=== PATIENT | female | born 1950 | race Asian ===

== ENCOUNTER 2017-04-23 13:13 | Outpatient (CLI) | payer MEDICARE ==
--- NOTE | 2017-04-25 11:15 | Mammography Report ---
DIGITAL BILATERAL SCREENING MAMMOGRAM: 04/23/2017 CLINICAL HISTORY: A 66-year-old female in for routine screening mammogram. Patient does have a family history of breast cancer. She had a cousin with breast cancer at age 55. Patient has had no prior breast surgeries. COMPARISON: 02/14/2009, 06/27/2010, 09/04/2011, 11/18/2013, 01/24/2016 TECHNIQUE: Craniocaudad and oblique lateral views of each breast were obtained with Hologic Full Field digital mammography. FINDINGS: Breasts are almost entirely composed of fat. No significant clusters of calcification are seen. No significant masses are noted. No change is seen. IMPRESSION: BREASTS APPEAR RADIOGRAPHICALLY BENIGN. BIRADS CATEGORY 1. NEGATIVE RECOMMENDATIONS: ANNUAL BILATERAL SCREENING MAMMOGRAPHY STANDARD QUALIFYING STATEMENTS 1. This examination was reviewed with the aid of Computer-Aided Detection (CAD). 2. A negative or benign imaging report should not delay biopsy if clinically suspicious findings are present. Consider surgical consultation if warranted. More than 5% of cancers are not identified by imaging. 3. Dense breasts may obscure an underlying neoplasm. JOB #: [id number] EXT JOB #: [id number] SADA
== END 2017-04-23 13:14 | disposition home or self-care (01) ==
LOC: DI.S 13:13
PROVIDERS: ATTEND Nurse Practitioner Family
DX: Z12.31 Encounter for screening mammogram for malignant neoplasm of breast (principal); Z80.3 Family history of malignant neoplasm of breast
CPT/HCPCS: 77067

== ENCOUNTER 2017-06-20 11:11 | Outpatient (CLI) | payer OTHER ==
[2017-06-20 18:07] LABS: ALBUMIN/GLOBULIN RATIO 1.1 (1.0-2.2); BILIRUBIN,TOTAL 0.8 mg/dL (0.2-1.0); BUN - BLOOD UREA NITROGEN 26 mg/dL (6-20); CALCIUM 9.2 mg/dL (8.5-10.3); CARBON DIOXIDE - CO2 30 mmol/L (21-32); CHLORIDE 103 mmol/L (101-111); CHOL/HDL RATIO 4.3 (<4.4); CHOLESTEROL 172 mg/dL; CREATININE 0.8 mg/dL (0.4-1.0); GFR - MDRD 71 (>89); GLUCOSE 105 mg/dL (70-100); HDL CHOLESTEROL 40 mg/dL; LDL/HDL RATIO 2.2 (<4.4); POTASSIUM 3.2 mmol/L (3.5-5.0); SODIUM 139 mmol/L (135-145); TOTAL PROTEIN 7.4 g/dL (6.7-8.2); TRIGLYCERIDES 217 mg/dL; VLDL CHOLESTEROL 43 mg/dL
[2017-06-20 18:25] LABS: HEMOGLOBIN A1C 0.68 g/dL
== END 2017-06-20 11:12 | disposition home or self-care (01) ==
LOC: LAB.F 11:11
PROVIDERS: ATTEND Nurse Practitioner Family
DX: R73.01 Impaired fasting glucose (principal); I10 Essential (primary) hypertension; E78.5 Hyperlipidemia, unspecified; Z13.29 Encounter for screening for other suspected endocrine disorder
CPT/HCPCS: 36415; 80053; 80061; 83036; 84443

== ENCOUNTER 2017-12-18 07:58 | Day surgery (SDC) | payer MEDICARE, OTHER ==
[2017-12-18] MEDS ORDERED: LACTATED RINGERS 1,000 ML IV ONE (08:19)
--- NOTE | 2017-12-18 10:01 | HISTORY & PHYSICAL EXAMINATION ---
HPI - History of Present Illness HPI Comment/Other: patient is here for colonoscopy for history of colon polyps. Current Meds: METOPROLOL SUCCINATE ER 200 MG ORAL TABLET EXTENDED RELEASE 24 HOUR (METOPROLOL SUCCINATE) one tablet dailly DILTIAZEM HCL ER COATED BEADS 300 MG ORAL CAPSULE EXTENDED RELEASE 24 HOUR ( DILTIAZEM HCL COATED BEADS) Take one tablet by mouth daily LISINOPRIL 40 MG ORAL TABLET (LISINOPRIL) Take one tablet by mouth daily HYDROCHLOROTHIAZIDE 25 MG ORAL TABLET (HYDROCHLOROTHIAZIDE) Take one tablet daily by mouth every morning ATORVASTATIN CALCIUM 20 MG ORAL TABLET (ATORVASTATIN CALCIUM) Take one tablet by mouth daily BETAMETHASONE DIPROPIONATE 0.05 % EXTERNAL OINTMENT (BETAMETHASONE DIPROPIONATE ) Apply as directed for eczema FLUTICASONE PROPIONATE 50 MCG/ACT NASAL SUSPENSION (FLUTICASONE PROPIONATE) Instill one spray in each nostril twice daily CLARITIN 10 MG ORAL TABLET (LORATADINE) one po daily NASACORT AQ 55 MCG/ACT NASAL AEROSOL (TRIAMCINOLONE ACETONIDE(NASAL)) one spray each nostril once daily KETOCONAZOLE 2 % EXTERNAL SHAMPOO (KETOCONAZOLE) apply to scalp twice weekly for 8 weeks, then as needed. Leave on 5 min. then rinse Past Medical History: Reviewed history from 08/08/2017 and no changes required: Hyperlipidemia Hypertension Impaired fasting glucose tubular adenomas 2009 Past Surgical History: Reviewed history from 03/14/2017 and no changes required: Colonoscopy 2009 Family History Summary: Reviewed history and no changes required: 11/05/2017 Mother (hannah.) - Has Family History of Diabetes - Entered On: 03/14/2017 Social History: Reviewed history and no changes required: Risk Factors: Smoked Tobacco Use: Former smoker Cigarettes: Yes Year quit: 1995 Years Since Last Quit: 22 Alcohol use: yes Drinks per day: social Physical Exam General: well developed, well nourished, in no acute distress Lungs: clear bilaterally to A & P Heart: regular rate and rhythm, S1, S2 without murmurs, rubs, gallops, or clicks Abdomen: bowel sounds positive; abdomen soft and non-tender without masses, organomegaly, or hernias noted Pulses: pulses normal in all 4 extremities Extremities: no clubbing, cyanosis, edema, or deformity noted with normal full range of motion of all joints Cervical Nodes: no significant adenopathy Psych: alert and cooperative; normal mood and affect; normal attention span and concentration Impression & Recommendations: Problem # 1: history of colon polyps will proceed with colonoscopy. PMH/PSH - Past Medical History Cardiovascular: positive: Hypertension, High cholesterol Respiratory: positive: None Endocrine/Autoimmune: positive: None GI: positive: None : positive: None HEENT: positive: Chronic hearing loss, Other Psych: positive: None Musculoskeletal: positive: None Derm: positive: Eczema MRSA Hx?: No - Past Surgical History General: positive: Colonoscopy HEENT: positive: Other Meds/Allgy - Home Medications Home Medications: Ambulatory Orders Medication Instructions Recorded Confirmed Atorvastatin [Lipitor] 20 mg PO DAILY 12/17/17 12/18/17 Diltiazem HCl [Diltiazem ER] 300 mg PO DAILY 12/17/17 12/18/17 Fluticasone [Flonase] 1 sprays ELANA DAILY 12/17/17 12/18/17 Lisinopril 40 mg PO DAILY 12/17/17 12/18/17 Metoprolol Succinate 200 mg PO DAILY 12/17/17 12/18/17 hydroCHLOROthiazide 25 mg PO DAILY 12/17/17 12/18/17 [Hydrochlorothiazide] - Allergies Allergies/Adverse Reactions: Allergies Allergy/AdvReac Type Severity Reaction Status Date / Time No Known Drug Allergies Allergy Verified 12/17/17 13:55 Exam - Vital Signs Vital Signs: Vital Signs x48h Temp Pulse Resp BP Pulse Ox 12/18/17 08:06 36.2 C L 76 16 144/107 H 98
[2017-12-18] MEDS ORDERED: MIDAZOLAM 2 MG/2 ML VIAL IVP ONE (10:09)
[2017-12-18] MEDS ORDERED: fentaNYL 100 MCG/2 ML VIAL IVP ONE (10:09)
[2017-12-18] MEDS ORDERED: ONDANSETRON 4 MG/2 ML VIAL IVP ONE (10:09)
[2017-12-18 12:13] VITALS: BP 118/62
== END 2017-12-18 07:59 | disposition home or self-care (01) ==
LOC: SDS 07:58
PROVIDERS: ATTEND Surgery
PROC: 0DJD8ZZ Inspection of Lower Intestinal Tract, Via Natural or Artificial Opening Endoscopic (ICD-10-PCS; principal; 2017-12-18 09:00)
DX: Z12.11 Encounter for screening for malignant neoplasm of colon (principal); Z86.010 Personal history of colon polyps; K64.8 Other hemorrhoids; K57.30 Diverticulosis of large intestine without perforation or abscess without bleeding; I10 Essential (primary) hypertension; E78.5 Hyperlipidemia, unspecified; Z87.891 Personal history of nicotine dependence
CPT/HCPCS: G0105; J7120

== ENCOUNTER 2018-02-13 10:55 | Outpatient (CLI) | payer MEDICARE ==
[2018-02-13 18:06] LABS: HB2 TOTAL 14.8 g/dL; HEMOGLOBIN A1C 0.69 g/dL; HEMOGLOBIN A1C % 6.4 % (4.6-6.2)
[2018-02-13 18:09] LABS: CREATININE 0.8 mg/dL (0.4-1.0)
== END 2018-02-13 10:56 | disposition home or self-care (01) ==
LOC: LAB.F 10:55
PROVIDERS: ATTEND Nurse Practitioner Family
DX: R73.01 Impaired fasting glucose (principal); E78.5 Hyperlipidemia, unspecified
CPT/HCPCS: 36415; 80048; 83036; 84478

== ENCOUNTER 2018-06-18 11:39 | Outpatient (CLI) | payer MEDICARE ==
--- NOTE | 2018-06-19 11:34 | Mammography Report ---
Procedure Date: 06/18/2018 Accession Number: [id number] / [id number] Procedure: [facility]ISH[facility] - Screening Mammo Dig Bilat CPT Code: FULL RESULT: EXAM: Screening Mammo Dig Bilat DATE: 06/18/2018 12:46 PM CLINICAL HISTORY: 68-year-old female with a 4 year history of hormone replacement therapy and a family history of breast cancer in a cousin at age 50. TECHNIQUE: Bilateral CC and MLO views were obtained. COMPARISON: 04/23/2017, 01/24/2016, 11/18/2013. FINDINGS: The breasts demonstrate scattered fibroglandular densities bilaterally. Round typically benign calcifications are seen bilaterally. No suspicious masses, clustered microcalcifications, or regions of architectural distortion are identified. IMPRESSION: Benign findings RECOMMENDATION: Routine annual screening unless otherwise clinically indicated. BIRADS CATEGORY 2: Benign findings STANDARD QUALIFYING STATEMENTS: 1. This examination was reviewed with the aid of Computer-Aided Detection (CAD). 2. A negative or benign imaging report should not delay biopsy if clinically suspicious findings are present. Consider surgical consultation if warrented. More than 5% of cancers are not identified by imaging. 3. Dense breasts may obscure an underlying neoplasm.
== END 2018-06-18 11:40 | disposition home or self-care (01) ==
LOC: DI 11:39
PROVIDERS: ATTEND Nurse Practitioner Family
DX: Z12.31 Encounter for screening mammogram for malignant neoplasm of breast (principal); Z80.3 Family history of malignant neoplasm of breast
CPT/HCPCS: 77067

== ENCOUNTER 2021-02-01 10:17 | Outpatient (CLI) | payer MEDICARE ==
[2021-02-01 14:43] LABS: BASOPHILS # (AUTO) 0.1 10^3/uL (0.0-0.1); BASOPHILS % (AUTO) 0.9 %; EOSINOPHILS # (AUTO) 0.7 10^3/uL (0.0-0.7); EOSINOPHILS % (AUTO) 7.3 %; HCT - HEMATOCRIT 45.6 % (37.0-47.0); HGB - HEMOGLOBIN 14.5 g/dL (12.0-16.0); LYMPHOCYTES # (AUTO) 1.4 10^3/uL (1.5-3.5); LYMPHOCYTES % (AUTO) 15.3 %; MEAN CORPUSCULAR HEMOGLOBIN 28.8 pg (27.0-31.0); MEAN CORPUSCULAR HGB CONC 31.8 g/dL (32.0-36.0); MEAN CORPUSCULAR VOLUME 90.7 fL (81.0-99.0); MEAN PLATELET VOLUME 11.8 fL (7.9-10.8); MONOCYTES # (AUTO) 0.8 10^3/uL (0.0-1.0); NEUTROPHILS # (AUTO) 6.4 10^3/uL (1.5-6.6); PLT - PLATELET COUNT 321 10^3/uL (130-450); RED BLOOD COUNT 5.03 10^6/uL (4.20-5.40); RED CELL DISTRIBUTION WIDTH 12.5 % (12.0-15.0); WHITE BLOOD COUNT 9.4 x10^3/uL (4.8-10.8)
[2021-02-01 15:38] LABS: ALBUMIN 4.1 g/dL (3.2-5.5); ALKALINE PHOSPHATASE 105 IU/L (42-121); ALT ALANINE AMINOTRANSFERASE 19 IU/L (10-60); AST ASPARTATE AMINOTRANSFERASE 21 IU/L (10-42); BILIRUBIN,TOTAL 1.3 mg/dL (0.2-1.0); BUN - BLOOD UREA NITROGEN 24 mg/dL (6-20); CALCIUM 9.7 mg/dL (8.5-10.3); CARBON DIOXIDE - CO2 26 mmol/L (21-32); CHLORIDE 101 mmol/L (101-111); CHOL/HDL RATIO 4.7 (<4.4); CHOLESTEROL 189 mg/dL; CREATININE 0.8 mg/dL (0.4-1.0); GFR - MDRD 71 (>89); GLUCOSE 116 mg/dL (70-100); HDL CHOLESTEROL 40 mg/dL; LDL CHOLESTEROL,CALCULATED 109 mg/dL; LDL/HDL RATIO 2.7 (<4.4); POTASSIUM 3.2 mmol/L (3.5-5.0); SODIUM 137 mmol/L (135-145); TOTAL PROTEIN 8.1 g/dL (6.7-8.2); TRIGLYCERIDES 198 mg/dL; VLDL CHOLESTEROL 40 mg/dL
[2021-02-01 16:16] LABS: THYROID STIMULATING HORMONE 1.19 uIU/mL (0.34-5.60)
[2021-02-02 13:26] LABS: HEPATITIS C ANTIBODY NON-REACTIVE (NON-REACTIVE)
== END 2021-02-01 10:18 | disposition home or self-care (01) ==
LOC: LAB.S 10:17
PROVIDERS: ATTEND Registered Nurse
DX: Z01.84 Encounter for antibody response examination (principal); I10 Essential (primary) hypertension; E78.5 Hyperlipidemia, unspecified; R73.01 Impaired fasting glucose
CPT/HCPCS: 36415; 80053; 80061; 83721; 84443; 85025; 86803

== ENCOUNTER 2021-02-08 14:08 | Outpatient (CLI) | payer MEDICARE ==
--- NOTE | 2021-02-08 16:15 | DEXA Report ---
PROCEDURE: Dexa Spine and/or Hip INDICATIONS: POST MENOPAUSAL TECHNIQUE: Dual energy x-ray absorptiometry (DXA) was performed on a [employer] System. Regions measur ed are the AP Spine, femoral neck, and if needed forearm. COMPARISON: None. FINDINGS: Lumbar Spine: Bone Mineral Density 1.103 g/cm/cm,T score -0.6, normal bone density Left Femoral Neck: Bone Mineral Density 0.865 g/cm/cm, T score -1.1, osteopenia (T score greater or equal to -1.0: NORMAL) (T score from -1.1 to -2.4: OSTEOPENIA) (T score less than or equal to -2.5 to: OSTEOPOROSIS) Impression: OSTEOPENIA. Patient is at increased risk for fracture Patients with diagnosis of osteoporosis or osteopenia should have regular bone mineral density assess ment. For those eligible for Medicare, routine testing is allowed once every 2 years. Testing frequ ency can be increased for patients who have rapidly progressing disease or for those who are receivin g medical therapy to restore bone mass. Reviewed by: Tien Ellis MD on 02/08/2021 4:13 PM PST Approved by: Tien Ellis MD on 02/08/2021 4:13 PM PST Station ID: [id number]
== END 2021-02-08 14:09 | disposition home or self-care (01) ==
LOC: DI 14:08
PROVIDERS: ATTEND Registered Nurse
DX: M85.89 Other specified disorders of bone density and structure, multiple sites (principal); Z78.0 Asymptomatic menopausal state

== ENCOUNTER 2021-04-19 09:47 | Outpatient (CLI) | payer MEDICARE ==
--- NOTE | 2021-04-24 12:40 | Mammography Report ---
BILATERAL DIGITAL SCREENING MAMMOGRAM 3D/2D: 04/19/2021 CLINICAL: Routine screening. Comparison mammograms 06/18/2018, 04/23/2017, 01/24/2016. There are scattered fibroglandular elements in both breasts. No significant masses, calcifications, or other findings are seen in either breast. IMPRESSION: NEGATIVE There is no mammographic evidence of malignancy. A 1 year screening mammogram is recommended. This exam was interpreted at Station ID: [id number]. NOTE: For mammograms, a report in lay terms will be sent to the patient. Approximately 15% of breast malignancies will not be visualized mammographically. In the management of a palpable breast mass, a negative mammogram must not discourage biopsy of a clinically suspicious lesion. Electronically Signed By: Osito Olivia M.D. slc/:04/24/2021 10:28:20 ACR BI-RADS Category 1: Negative 3341F PARENCHYMAL PATTERN: (A) - The breast(s) demonstrate(s) scattered fibroglandular densities. BI-RADS CATEGORY: (1) - 1 RECOMMENDATION: (ANNUAL) - Recommend routine annual screening mammography. [id number] 1 year screening LATERALITY: (B)
== END 2021-04-19 09:48 | disposition home or self-care (01) ==
LOC: DI 09:47
PROVIDERS: ATTEND Registered Nurse
DX: Z12.31 Encounter for screening mammogram for malignant neoplasm of breast (principal)

== ENCOUNTER 2022-01-02 14:49 | Outpatient (CLI) | payer MEDICARE ==
[2022-01-02 19:58] LABS: CREATININE 0.8 mg/dL (0.4-1.0); POTASSIUM 3.2 mmol/L (3.5-5.0)
== END 2022-01-02 14:50 | disposition home or self-care (01) ==
LOC: LAB.S 14:49
PROVIDERS: ATTEND Registered Nurse
DX: R73.9 Hyperglycemia, unspecified (principal)
CPT/HCPCS: 36415; 80048

== ENCOUNTER 2023-07-15 14:50 | Outpatient (CLI) | payer MEDICARE ==
--- NOTE | 2023-07-17 11:37 | Mammography Report ---
BILATERAL DIGITAL SCREENING MAMMOGRAM 3D/2D: 07/15/2023 CLINICAL: Routine screening. Comparison is made to exams dated: 07/24/2022 mammogram, 04/19/2021 mammogram, 06/18/2018 mammogram, an d 04/23/2017 mammogram - [facility]. There are scattered areas of fibroglandular density in both breasts (category b / 25%-50% glandular t issue). No significant masses, calcifications, or other findings are seen in either breast. There has been no significant interval change. IMPRESSION: NEGATIVE There is no mammographic evidence of malignancy. A 1 year screening mammogram is recommended. Based on the Tyrer Cuzick model (a risk assessment model) the patients lifetime risk is 2.7% and her 10 year risk is 2.5%. According to the ACR, ACS, and NCCN guidelines, an annual breast MRI exam nadia g with mammogram is recommended if the patients lifetime risk is 20% or greater. This exam was interpreted at Station ID: [id number]. NOTE: For mammograms, a report in lay terms will be sent to the patient. Approximately 15% of breast malignancies will not be visualized mammographically. In the management of a palpable breast mass, a negative mammogram must not discourage biopsy of a clinically suspicious lesion. Electronically Signed By: Girma barlow/madhavi:07/16/2023 11:53:04 letter sent: No_Letter ACR BI-RADS Category 1: Negative 3341F PARENCHYMAL PATTERN: (A) - The breast(s) demonstrate(s) scattered fibroglandular densities. BI-RADS CATEGORY: (1) - 1 Mammogram [id number] 1 year screening LATERALITY: (B)
== END 2023-07-15 14:51 | disposition home or self-care (01) ==
LOC: DI 14:50
PROVIDERS: ATTEND Registered Nurse
DX: Z12.31 Encounter for screening mammogram for malignant neoplasm of breast (principal)